=== PATIENT | male | born 1950 | race Two or more races ===

== ENCOUNTER 2024-01-01 09:12 | Emergency (ER) | payer BC ==
[~2024-01-01] VITALS: Ht 175.3 cm; Wt 93.0 kg
[2024-01-01] MEDS ORDERED: ZETIA10 MG (09:35)
[2024-01-01] MEDS ORDERED: TENORMIN25 MG PO (09:35)
[2024-01-01] MEDS ORDERED: CRESTOR40 MG PO (09:35)
[2024-01-01] MEDS ORDERED: FENOFIBRATE160 MG PO (09:36)
[2024-01-01] MEDS ORDERED: KETOROLAC TROMETHAMINE 60 MG VIAL IM STA (09:58)
[2024-01-01 10:28] LABS: HEMATOCRIT 39.8 % (39.0-48.0); MEAN CELL VOLUME 91.7 fL (80.0-100.00); MEAN CORPUSCULAR HEMOGLOBIN 32.3 pg (27.00-32.0); MEAN CORPUSCULAR HGB CONC 35.3 g/dl (32.0-36.0); PLATELET COUNT 160 K/uL (150-450); RED BLOOD COUNT 4.34 M/uL (4.00-6.00); RED CELL DISTRIBUTION WIDTH 14.6 % (11.5-14.5)
== END 2024-01-01 11:30 | disposition home or self-care (01) ==
LOC: ER 09:13
PROVIDERS: General Practice
DX: U07.1 COVID-19 (principal); R50.9 Fever, unspecified; Z91.018 Allergy to other foods; Z95.1 Presence of aortocoronary bypass graft; I20.89 Other forms of angina pectoris